=== PATIENT | female | born 1960 | race Caucasian/White ===

== ENCOUNTER 2021-01-31 10:52 | Emergency (ER) | payer OTHER ==
[~2021-01-31] VITALS: Ht 167.6 cm; Wt 49.6 kg
[2021-01-31] MEDS ORDERED: IBUPROFEN 600 MG TABLET ONE (11:18)
--- NOTE | 2021-01-31 11:27 | NUR ---
[employer] PER JAN. XRAY COMPLETE. LAB AT BEDSIDE. AWAITING US.
[2021-01-31] MEDS ORDERED: IBUPROFEN 200 MG TABLET PO ONE (11:30)
[2021-01-31 11:45] LABS: ALBUMIN 4.3 g/dL (3.4-5.0); ANION GAP 4 mmol/L (5-15); CALCIUM 9.2 mg/dL (8.5-10.1); CHLORIDE 111 mmol/L (98-107); CREATININE 0.94 mg/dL (0.55-1.02)
--- NOTE | 2021-01-31 11:45 | NUR ---
US AT BEDSIDE
[2021-01-31 11:55] LABS: BASOPHILS % (AUTO) 1 % (0-1); EOSINOPHILS % (AUTO) 15 % (1-7); LYMPHOCYTES % (AUTO) 34 % (22-44); MEAN CORPUSCULAR HEMOGLOBIN 31.6 pg (27.0-34.8); MEAN CORPUSCULAR HGB CONC 33.8 g/dL (32.4-35.8); MEAN PLATELET VOLUME 9.6 fL (7.4-10.4); MONOCYTES % (AUTO) 11 % (2-9); NEUTROPHILS % (AUTO) 39 % (42-75); PLATELET COUNT 212 x10^3/uL (130-400); RED BLOOD COUNT 4.24 x10^6/uL (3.82-5.3); RED CELL DISTRIBUTION WIDTH 13.1 % (9.6-15.2)
[2021-01-31 11:56] LABS: MD NO
--- NOTE | 2021-01-31 12:13 | NUR ---
ALL RESULTS ARE BACK AT THIS TIME. CHART UP FOR RECHECK.
[2021-01-31 12:56] VITALS: BP 120/85
== END 2021-01-31 12:58 | disposition home or self-care (01) ==
LOC: ED 12:20
DX: M79.661 Pain in right lower leg (principal)
CPT/HCPCS: 36415; 71045; 80048; 82040; 85025; 85379; 99285